=== PATIENT | female | born 1950 | race Caucasian/White ===

== ENCOUNTER 2023-11-17 21:46 | Emergency (ER) | payer MEDICARE, OTHER ==
[~2023-11-17] VITALS: Ht 157.5 cm; Wt 61.2 kg
[~2023-11-17 21:46] MED LIST: BIOTIN2500 MCG PO; CELEXA20 MG PO; HYDROCHLOROTHIA25 MG PO; LISINOPRIL10 MG PO; MELOXICAM15 MG PO; METFORMIN HCL500 MG PO; POTASSIUM CHLO10 ME1 PO; PROPRANOLOL HCL40 MG PO; SYNTHROID50 MCG PO; VERAPAMIL ER120 MG PO; VITAMIN B-121000 MCG PO; VITAMIN D1000 UNIT PO; VITAMIN E400 UNI2 PO; XANAX0.25 MG PO
[2023-11-17 22:47] VITALS: TEMP 97.3
[2023-11-17] MEDS: TETANUS/DIPHTHERIA TOX ADULT 0.5 ML SYR IM ONE (23:01)
[2023-11-17] MEDS ORDERED: TETANUS/DIPHTHERIA TOX ADULT 0.5 ML SYR ONE (23:01)
[2023-11-17] MEDS: IBUPROFEN 600 MG TAB PO STA (23:09)
[2023-11-18 01:18] VITALS: PULSE 72; RESP 16; O2SAT 100
== END 2023-11-18 01:18 | disposition home or self-care (01) ==
LOC: ER 23:00
DX: S00.81XA Abrasion of other part of head, initial encounter (principal); S80.211A Abrasion, right knee, initial encounter; S60.222A Contusion of left hand, initial encounter; M25.512 Pain in left shoulder; W01.0XXA Fall on same level from slipping, tripping and stumbling without subsequent striking against object, initial encounter; Y93.01 Activity, walking, marching and hiking; Y92.89 Other specified places as the place of occurrence of the external cause; E11.9 Type 2 diabetes mellitus without complications; F41.9 Anxiety disorder, unspecified
CPT/HCPCS: 70450; 70486; 90714; 99283